=== PATIENT | male | born 1965 | race Two or more races ===

== ENCOUNTER 2018-04-10 22:48 | Emergency (ER) | payer OTHER ==
[2018-04-10 23:23] LABS: ANION GAP 9 (6-14); BLOOD UREA NITROGEN 11 mg/dL (8-26); CALCIUM 9.5 mg/dL (8.5-10.1); CARBON DIOXIDE 26 mmol/L (21-32); CHLORIDE 102 mmol/L (98-107); GFR 77.9; GLUCOSE 85 mg/dL (70-99); POTASSIUM 3.4 mmol/L (3.5-5.1); SODIUM 137 mmol/L (136-145)
[2018-04-10 23:37] LABS: BILIRUBIN,URINE NEGATIVE (NEG); CLARITY,URINE CLEAR; GLUCOSE,URINE NEGATIVE (NEG); NITRITE,URINE NEGATIVE (NEG); PROTEIN,URINE NEGATIVE (NEG-TRACE); UROBILINOGEN,URINE 0.2 mg/dL (0.2 mg/dL)
[2018-04-10] MEDS: hydrALAZINE 20 MG/ML VIAL. IVP (23:39)
[2018-04-10 23:42] LABS: COLOR,URINE STRAW
[2018-04-10 23:43] LABS: BACTERIA,URINE 0 /HPF (0-FEW); RBC,URINE RARE /HPF (0-2); SQUAMOUS EPITHELIAL CELL,UR OCC /LPF; WBC,URINE 0 /HPF (0-4)
[2018-04-11] MEDS ORDERED: hydrALAZINE 20 MG/ML VIAL. IVP (00:30)
== END 2018-04-11 01:05 | disposition home or self-care (01) ==
LOC: ER 04-11 01:05
DX: I10 Essential (primary) hypertension (principal); G89.29 Other chronic pain
CPT/HCPCS: 36415; 80048; 81001; 84484; 93005; 96374; 99285-25; J0360

== ENCOUNTER 2018-10-02 22:27 | Emergency (ER) | payer OTHER ==
[~2018-10-02] VITALS: Ht 165.1 cm; Wt 67.6 kg
[~2018-10-02 22:27] MED LIST: LISI-334 PO
[2018-10-02] MEDS ORDERED: PROCHLORPERAZINE 10 MG/2 ML VIAL. IV ONE (23:30)
[2018-10-02] MEDS ORDERED: diphenhydrAMINE 50 MG/ML VIAL IVP ONE (23:30)
[2018-10-02] MEDS ORDERED: IV NORMAL SALINE 1000ML BAG 1,000 ML IV ONE (23:30)
--- NOTE | 2018-10-02 23:31 | RAD ---
Examination: CT HEAD WO CONTRAST History: severe high blood pressure; headache Comparison/Correlation: None Findings: Axial images of the head were obtained without contrast. Ventricles are normal size. No intracranial hemorrhage, midline shift, or mass effect. There is linear low-attenuation involving the left insula extending into the left temporal lobe. Mild diffuse low-attenuation involving the left temporal lobe is present without mass effect. Globes and optic nerves are unremarkable. Absence of the medial wall of the right maxillary sinus is noted with mucosal thickening. Patchy opacification of ethmoid air cells noted. Mucosal thickening of the left maxillary sinus is minimal. Minimal fluid within the left maxillary sinus suggested. Globes and optic nerves are unremarkable. Impression: No intracranial hemorrhage. 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 Correlate for previous infarct. In addition however there is more extensive, milder low-attenuation throughout the left temporal lobe. Further evaluation MRI of the brain without and with contrast if able to assess for possibility of a mass lesion or other significant process is recommended on a nonemergent basis. Chronic paranasal sinusitis. Minimal acute left maxillary sinusitis. Electronically signed by: Henri Quintanilla MD (10/02/2018 11:26 PM) [facility]
--- NOTE | 2018-10-02 23:44 | PHYS DOC ---
Past Medical History Past Medical History: Hypertension, Other Additional Past Medical Histor: patient is very poor historian reports chronic leg pain Past Surgical History: No Surgical History Additional Past Surgical Histo: sinus surgery 1 month ago Additional Information: chewing tobacco Alcohol Use: None Drug Use: None Adult General Chief Complaint Chief Complaint: HYPERTENSION HPI HPI Patient is a 53 year old male who presents with generalized headache. Patient had onset of symptoms earlier today. Headache came on slowly and not suddenly. The patient does state he has a history of similar episodes when his blood pressure is high. He is normally on 3 medications for blood pressure daily but he cannot murmur with they're called. He took his last pill earlier this morning. This evening, he complains of a generalized frontal temporal headache. Pain is described to be throbbing in nature. No vision changes. No photophobia. No nausea or vomiting. He has not had chest pain or shortness of breath. No recent fever, chills, neck stiffness. No recent travel. Review of Systems Review of Systems Constitutional: Denies fever Eyes: Denies change in visual acuity, redness, or eye pain HENT: Denies nasal congestion or sore throat Respiratory: Denies cough or shortness of breath Cardiovascular: No additional information not addressed in HPI GI: Denies nausea or vomiting Integument: Denies rash Neurologic: Denies headache Endocrine: Denies polyuria All other systems were reviewed and found to be within normal limits, except as documented in this note. Current Medications Current Medications Current Medications Medications (Trade) Dose Ordered Sig/Alfonzo Start Time Stop Time Status Last Admin Dose Admin Diphenhydramine HCl (Benadryl) 12.5 mg 1X ONCE 10/02/18 23:30 10/02/18 23:31 DC 10/02/18 23:25 12.5 MG Labetalol HCl (Normodyne Iv Push) 20 mg 1X ONCE 10/03/18 00:30 10/03/18 00:31 DC Morphine Sulfate (Morphine Sulfate) 4 mg 1X ONCE 10/03/18 00:30 10/03/18 00:31 DC 10/02/18 23:56 4 MG Prochlorperazine Edisylate (Compazine) 10 mg 1X ONCE 10/02/18 23:30 10/02/18 23:31 DC 10/02/18 23:25 10 MG Sodium Chloride 1,000 ml @ 1,000 mls/hr 1X ONCE 10/02/18 23:30 10/03/18 00:29 DC 10/02/18 23:25 1,000 MLS/HR Allergies Allergies Allergies Coded Allergies Type Severity Reaction Last Updated Verified No Known Drug Allergies 08/09/15 No Physical Exam Physical Exam Constitutional: Well developed, well nourished, no acute distress, non-toxic appearance HENT: Normocephalic, atraumatic, bilateral external ears normal, oropharynx moist Eyes: PERRLA, EOMI, conjunctiva normal Neck: Normal range of motion, no tenderness, supple Cardiovascular:Heart rate regular rhythm, no murmur Lungs & Thorax: Bilateral breath sounds clear to auscultation Abdomen: Bowel sounds normal, soft, no tenderness Skin: Warm, dry, no erythema Back: No tenderness, no CVA tenderness Extremities: No tenderness, no cyanosis, no clubbing, ROM intact, no edema Neurologic: Alert and oriented X 3, normal motor function, normal cranial nerve exam bilaterally. Normal steady gait. Psychologic: Affect normal, judgement normal Current Patient Data Vital Signs Vital Signs Date Time Temp Pulse Resp B/P (MAP) Pulse Ox O2 Delivery O2 Flow Rate FiO2 10/03/18 00:00 86 18 94 10/02/18 23:56 Room Air 10/02/18 22:30 97.8 198/89 (125) 97.8 EKG EKG [] Radiology/Procedures Radiology/Procedures CT head: Impression: No intracranial hemorrhage. 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 Correlate for previous infarct. In addition however there is more extensive, milder low-attenuation throughout the left temporal lobe. Further evaluation MRI of the brain without and with contrast if able to assess for possibility of a mass lesion or other significant process is recommended on a nonemergent basis. Chronic paranasal sinusitis. Minimal acute left maxillary sinusitis. Course & Med Decision Making Course & Med Decision Making Pertinent Labs and Imaging studies reviewed. (See chart for details) Patient is evaluated immediately on arrival to his room. He has a normal neurologic exam. He does state that his symptoms this evening feel typical for when his blood pressure is elevated. No focal neuro complaints. Plan is to give usual headache medications along with medication for blood pressure if his blood pressure does not improve. Will check CT scan of the head. 23:45: Patient has received Compazine and Benadryl for his headache. He has no relief of pain symptoms at this time. His blood pressure continues to be 186 systolic. He is ordered to have additional medications for pain. 00:40: Patient currently feeling much improved. His headache symptoms are entirely resolved. His systolic blood pressure is 150. I did contact the patient 's primary pharmacy to find out that he takes Norvasc, lisinopril, metoprolol. Refills of these medications are prescribed. The patient had some areas of low attenuation on his CT scan but did not have any acute findings suspicious for bleed. These findings were discussed with the patient through his family member who was the primary boilermaker welder. They were explicitly advised to follow-up with her primary care doctor to seek follow-up MRI scan of the brain. This was also written into their discharge papers. They did verbalize understanding. He has a scheduled follow-up appointment with his primary care doctor and about 5 weeks. He was advised to call tomorrow for a sooner appointment or come back to the ER for any new or worsening symptoms. Dragon Disclaimer Dragon Disclaimer This electronic medical record was generated, in whole or in part, using a voice recognition dictation system. Departure Departure Disposition: 01 HOME, SELF-CARE Condition: GOOD Referrals: CHAITANYA MICHAUD MD (PCP) Scripts Amlodipine Besylate (NORVASC) 10 Mg Tablet 10 MG PO DAILY, #30 TAB 1 Refill Prov: ELIZA TURNER DO 10/03/18 Lisinopril (LISINOPRIL) 20 Mg Tablet 1 TAB PO DAILY, #30 TAB 1 Refill Prov: ELIZA TURNER DO 10/03/18 Metoprolol Tartrate (METOPROLOL TARTRATE) 50 Mg Tablet 1 TAB PO BID, #60 TAB 1 Refill Prov: ELIZA TURNER DO 10/03/18 ELIZA TURNER DO Oct 02, 2018 23:44
[2018-10-03 00:30] VITALS: BP 153/95
[2018-10-03] MEDS ORDERED: LABETALOL 20 MG/4 ML DISP.SYRIN. IVP ONE (00:30)
[2018-10-03] MEDS ORDERED: MORPHINE SULFATE 4 MG/ML VIAL. IV ONE (00:30)
[2018-10-03] MEDS ORDERED: AMLO10TA4 PO (00:33)
[2018-10-03] MEDS ORDERED: LISI-334 PO (00:33)
[2018-10-03] MEDS ORDERED: METO50TA6 PO (00:33)
== END 2018-10-03 00:45 | disposition home or self-care (01) ==
LOC: ER 22:27
DX: R51 Headache (principal); I10 Essential (primary) hypertension; F17.220 Nicotine dependence, chewing tobacco, uncomplicated
CPT/HCPCS: 70450; 96374; 96375; 99284; J0780; J1200; J2270; J7030

== ENCOUNTER 2019-06-21 01:48 | Emergency (ER) | payer OTHER ==
[~2019-06-21] VITALS: Ht 162.6 cm; Wt 68.0 kg
[~2019-06-21 01:48] MED LIST changes: +AMLO10TA4 PO; +METO50TA6 PO
--- NOTE | 2019-06-21 02:15 | PHYS DOC ---
Past Medical History Past Medical History: Hypertension, Other Additional Past Medical Histor: patient is very poor historian reports chronic leg pain Past Surgical History: No Surgical History Additional Past Surgical Histo: sinus surgery 1 month ago Alcohol Use: None Drug Use: None Adult General Chief Complaint Chief Complaint: HYPERTENSION HPI HPI Patient is a 53-year-old male who presents with complaint of left-sided neck pain and elevated blood pressure. Patient states that pain has been present since last night and states that he first noticed the pain when he woke up during the night. He denies any injuries. Patient states the pain is worsened when he tries to turn or side bend his neck. He rates pain at a 5 out of 10. Patient also states that blood pressure was more elevated than usual tonight. Patient does take his blood pressure medication as directed but states that he is not sure what medication is his blood pressure medication because he received it in bubble packs, mixed with his other medications.[] Review of Systems Review of Systems Constitutional: Denies fever or chills [] Respiratory: Denies cough or shortness of breath [] Cardiovascular: No additional information not addressed in HPI [] Musculoskeletal: Complains of neck pain [] Integument: Denies rash or skin lesions [] Neurologic: Denies headache, focal weakness or sensory changes [] All other systems were reviewed and found to be within normal limits, except as documented in this note. Current Medications Current Medications Current Medications Medications (Trade) Dose Ordered Sig/[facility] Start Time Stop Time Status Last Admin Dose Admin Acetaminophen/ Hydrocodone Bitart (Lortab 7.5/325) 1 tab 1X ONCE 06/21/19 02:30 06/21/19 02:31 DC 06/21/19 02:16 1 TAB Clonidine HCl (Catapres) 0.2 mg 1X ONCE 06/21/19 02:30 06/21/19 02:31 DC 06/21/19 02:16 0.2 MG Cyclobenzaprine HCl (Flexeril) 10 mg 1X ONCE 06/21/19 02:30 06/21/19 02:31 DC 06/21/19 02:16 10 MG Allergies Allergies Allergies Coded Allergies Type Severity Reaction Last Updated Verified No Known Drug Allergies 08/09/15 No Physical Exam Physical Exam Constitutional: Well developed, well nourished, no acute distress, non-toxic appearance. [] HENT: Normocephalic, atraumatic, bilateral external ears normal, oropharynx moist, no oral exudates, nose normal. [] Eyes: PERRLA, EOMI, conjunctiva normal, no discharge. [] Neck: Normal range of motion, with tenderness to palpation in the left sided suboccipital and cervical strap muscles with palpable spasm. [] Cardiovascular: Regular rate and rhythm[] Lungs & Thorax: Bilateral breath sounds clear to auscultation [] Abdomen: Bowel sounds normal, soft, no tenderness. [] Skin: Warm, dry, no erythema, no rash. [] Extremities: No tenderness, no cyanosis, no clubbing, ROM intact, no edema. [] Neurologic: Alert and oriented X 3, no focal deficits noted. [] Current Patient Data Vital Signs Vital Signs Date Time Temp Pulse Resp B/P (MAP) Pulse Ox O2 Delivery O2 Flow Rate FiO2 06/21/19 02:16 75 179/98 06/21/19 02:16 16 98 Room Air 06/21/19 01:55 98.2 98.2 EKG EKG [] Radiology/Procedures Radiology/Procedures [] Course & Med Decision Making Course & Med Decision Making Pertinent Labs and Imaging studies reviewed. (See chart for details) [] Dragon Disclaimer Dragon Disclaimer This electronic medical record was generated, in whole or in part, using a voice recognition dictation system. Departure Departure Impression: Primary Impression: Neck pain Additional Impression: Hypertension Disposition: 01 HOME, SELF-CARE Condition: STABLE Referrals: CHAITANYA MICHAUD MD (PCP) Patient Instructions: Hypertension, Musculoskeletal Pain Scripts Orphenadrine Citrate (ORPHENADRINE CITRATE) 100 Mg Tablet.er 1 TAB PO BID PRN for MUSCLE SPASMS, #14 TAB Prov: LIT ERAZO Jr. DO 06/21/19 Tramadol Hcl (TRAMADOL HCL) 50 Mg Tablet 50 MG PO Q6HRS PRN for PAIN, #12 TAB Prov: LIT ERAZO Jr. DO 06/21/19 Problem Qualifiers Additional Impression: Hypertension Hypertension type: essential hypertension Qualified Codes: I10 - Essential (primary) hypertension LIT ERAZO Jr. DO Jun 21, 2019 02:15
[2019-06-21 02:20] VITALS: BP 166/97
[2019-06-21] MEDS ORDERED: cloNIDine HCL 0.1 MG TABLET PO ONE (02:30)
[2019-06-21] MEDS ORDERED: HYDROcodone/APAP 7.5/325MG 1 TAB TABLET PO ONE (02:30)
[2019-06-21] MEDS ORDERED: CYCLOBENZAPRINE 10 MG TABLET. PO ONE (02:30)
[2019-06-21] MEDS ORDERED: TRAM50TA PO (02:45)
[2019-06-21] MEDS ORDERED: ORPH100T PO (02:45)
== END 2019-06-21 03:00 | disposition home or self-care (01) ==
LOC: ER 01:48
DX: M54.2 Cervicalgia (principal); I10 Essential (primary) hypertension; G89.29 Other chronic pain
CPT/HCPCS: 99284

== ENCOUNTER 2019-07-17 20:20 | Emergency (ER) | payer OTHER ==
[~2019-07-17] VITALS: Ht 160 cm; Wt 68.0 kg
[~2019-07-17 20:20] MED LIST changes: +ORPH100T PO; +TRAM50TA PO
[2019-07-17] MEDS ORDERED: cloNIDine HCL 0.1 MG TABLET PO ONE (21:45)
--- NOTE | 2019-07-17 21:58 | PHYS DOC ---
Past Medical History Past Medical History: Depression, Hypertension, Other Additional Past Medical Histor: patient is very poor historian reports chronic leg pain (BRENNAN GILES APRN) Past Surgical History: No Surgical History Additional Past Surgical Histo: sinus surgery 1 month ago (BRENNAN GILES APRN) Alcohol Use: None Drug Use: None (BRENNAN GILES APRN) Attending Signature I have participated in the care of this patient and I have reviewed and agree with all pertinent clinical information above including history, exam, and recommendations. (SANDRA ARNETT MD) Adult General Chief Complaint Chief Complaint: HYPERTENSION HPI HPI Patient is a 53 year old male with history of hypertension and depression who presents to the ED today requesting high blood pressure medications. Patient states he ran out of his own medicine a couple days ago. He has prescriptions at the local pharmacy. He unfortunately does not know the name of the medicines he is on. Denies any other symptoms. Patient is [place] speaking and the son is interpreting (BRENNAN GILES APRN) Review of Systems Review of Systems Constitutional: Denies fever or chills [] Eyes: Denies change in visual acuity, redness, or eye pain [] HENT: Denies nasal congestion or sore throat [] Respiratory: Denies cough or shortness of breath [] Cardiovascular: Reports high blood pressure GI: Denies abdominal pain, nausea, vomiting, bloody stools or diarrhea [] : Denies dysuria or hematuria [] Musculoskeletal: Denies back pain or joint pain [] Integument: Denies rash or skin lesions [] Neurologic: Denies headache, focal weakness or sensory changes [] All other systems were reviewed and found to be within normal limits, except as documented in this note. (BRENNAN GILES APRN) Current Medications Current Medications Current Medications Medications (Trade) Dose Ordered Sig/Alfonzo Start Time Stop Time Status Last Admin Dose Admin Clonidine HCl (Catapres) 0.2 mg 1X ONCE 07/17/19 21:45 07/17/19 21:46 DC 07/17/19 21:57 0.2 MG (SANDRA ARNETT MD) Allergies Allergies Allergies Coded Allergies Type Severity Reaction Last Updated Verified No Known Drug Allergies 08/09/15 No (SANDRA ARNETT MD) Physical Exam Physical Exam Constitutional: Well developed, well nourished, no acute distress, non-toxic appearance. [] HENT: Normocephalic, atraumatic, bilateral external ears normal, oropharynx moist, no oral exudates, nose normal. [] Eyes: PERRLA, EOMI, conjunctiva normal, no discharge. [] Neck: Normal range of motion, no tenderness, supple, no stridor. [] Cardiovascular:Heart rate regular rhythm, no murmur [] Lungs & Thorax: Bilateral breath sounds clear to auscultation [] Abdomen: Bowel sounds normal, soft, no tenderness, no masses, no pulsatile masses. [] Skin: Warm, dry, no erythema, no rash. [] Back: No tenderness, no CVA tenderness. [] Extremities: No tenderness, no cyanosis, no clubbing, ROM intact, no edema. [] Neurologic: Alert and oriented X 3, normal motor function, normal sensory function, no focal deficits noted. [] Psychologic: Affect normal, judgement normal, mood normal. [] (BRENNAN GILES APRN) Current Patient Data Vital Signs Vital Signs Date Time Temp Pulse Resp B/P (MAP) Pulse Ox O2 Delivery O2 Flow Rate FiO2 07/17/19 21:57 77 189/110 07/17/19 20:49 97.6 18 98 Room Air 97.6 (SANDRA ARNETT MD) EKG EKG [] (BRENNAN GILES APRN) Radiology/Procedures Radiology/Procedures [] (BRENNAN GILES APRN) Course & Med Decision Making Course & Med Decision Making Pertinent Labs and Imaging studies reviewed. (See chart for details) This is a 53-year-old male patient who presents to the ED today requesting his blood pressure medications. He ran out of his medicines a couple days ago. He does not know the name of the medicines he takes, he states he has a prescription at the local pharmacy which he can pick tomorrow but he would like something in the ED right now. He has no other complaints. Blood pressure 205/102 with a heart rate of 79. Was given clonidine and discharged. Encouraged to go to the pharmacy and make sure he gets his medication refilled tomorrow morning (BRENNAN GILES APRN) Dragon Disclaimer Dragon Disclaimer This electronic medical record was generated, in whole or in part, using a voice recognition dictation system. (BRENNAN GILES APRN) Departure Departure Impression: Primary Impression: HTN (hypertension) Disposition: HOME, SELF-CARE Condition: STABLE Referrals: CHAITANYA MICHAUD MD (PCP) follow up in the course of this week Patient Instructions: Hypertension Additional Instructions: You were evaluated in the emergency room for high blood pressure. Please call your doctor tomorrow morning and set up a follow-up appointment. Please go to a local pharmacy and shrimp picker your blood pressure medicines Problem Qualifiers Primary Impression: HTN (hypertension) Hypertension type: unspecified Qualified Codes: I10 - Essential (primary) hypertension BRENNAN GILES APRN Jul 17, 2019 21:58 SANDRA ARNETT MD Jul 18, 2019 00:33
[2019-07-17 22:23] VITALS: BP 183/95
== END 2019-07-17 22:23 | disposition home or self-care (01) ==
LOC: ER 20:20
DX: I10 Essential (primary) hypertension (principal); F32.9 Major depressive disorder, single episode, unspecified; G89.29 Other chronic pain
CPT/HCPCS: 99281; 99282

== ENCOUNTER 2019-10-07 01:35 | Emergency (ER) | payer OTHER ==
[~2019-10-07] VITALS: Ht 165.1 cm; Wt 68.0 kg
[2019-10-07] MEDS ORDERED: AZIT250T PO (03:30)
[2019-10-07] MEDS ORDERED: BENZ100C PO (03:30)
--- NOTE | 2019-10-07 03:30 | RAD ---
EXAM: PA and Lateral Views of the Chest DATE: 10/07/2019 2:17 AM INDICATION: Cough and sore throat since yesterday COMPARISON: No Prior FINDINGS: The heart is not enlarged. Mediastinal and hilar contours are normal. No focal parenchymal airspace opacity. No pleural effusion or pneumothorax. IMPRESSION: No evidence for acute cardiopulmonary process Electronically signed by: Harris Ackerman MD (10/07/2019 3:28 AM) [facility]
--- NOTE | 2019-10-07 03:31 | PHYS DOC ---
Past Medical History Past Medical History: Hypertension Additional Past Medical Histor: patient is very poor historian reports chronic leg pain Past Surgical History: No Surgical History Additional Past Surgical Histo: "tumor removed from nose" Alcohol Use: None Drug Use: None Adult General Chief Complaint Chief Complaint: COUGH [facility] HPI Patient is a 54 year old male who presents with complaint of productive cough, chest soreness and sore throat for the last few days. Patient reports that cough is been productive of yellow-green sputum. Patient is had no fever. Patient denies any nausea or vomiting. He also denies any shortness of breath.[] Review of Systems Review of Systems Constitutional: Denies fever or chills [] Respiratory: Positive cough without shortness of breath [] Cardiovascular: No additional information not addressed in HPI [] Integument: Denies rash or skin lesions [] Neurologic: Denies headache, focal weakness or sensory changes [] Allergies Allergies Allergies Coded Allergies Type Severity Reaction Last Updated Verified No Known Drug Allergies 08/09/15 No Physical Exam Physical Exam Constitutional: Well developed, well nourished, no acute distress, non-toxic appearance. [] Cardiovascular: Regular rate and rhythm[] Lungs & Thorax: Fine rhonchi are noted bilaterally to auscultation [] Skin: Warm, dry, no erythema, no rash. [] Extremities: No tenderness, no cyanosis, no clubbing, ROM intact, no edema. [] Current Patient Data Vital Signs Vital Signs Date Time Temp Pulse Resp B/P (MAP) Pulse Ox O2 Delivery O2 Flow Rate FiO2 10/07/19 02:12 98.3 97 16 148/81 (103) 99 Room Air 98.3 EKG EKG [] Radiology/Procedures Radiology/Procedures [] Impressions: Two-view chest x-ray demonstrates no acute process. Course & Med Decision Making Course & Med Decision Making Pertinent Labs and Imaging studies reviewed. (See chart for details) [] Dragon Disclaimer Dragon Disclaimer This electronic medical record was generated, in whole or in part, using a voice recognition dictation system. Departure Departure Impression: Primary Impression: Acute bronchitis Disposition: 01 HOME, SELF-CARE Condition: STABLE Referrals: CHAITANYA MICHAUD MD (PCP) Patient Instructions: Acute Bronchitis Scripts Benzonatate (TESSALON PERLE) 100 Mg Capsule 1 CAP PO TID PRN for COUGH, #21 CAP Prov: LIT ERAZO Jr. DO 10/07/19 Azithromycin (ZITHROMAX) 250 Mg Tablet 1 PKG PO UD, #6 TAB Prov: LIT ERAZO Jr. DO 10/07/19 Problem Qualifiers Primary Impression: Acute bronchitis Bronchitis organism: unspecified organism Qualified Codes: J20.9 - Acute bronchitis, unspecified LIT ERAZO Jr. DO Oct 07, 2019 03:31
[2019-10-07 03:45] VITALS: BP 148/88
[2019-10-07] MEDS ORDERED: AZITHROMYCIN 250 MG TABLET. PO ONE (03:45)
== END 2019-10-07 03:55 | disposition home or self-care (01) ==
LOC: ER 01:35
DX: J20.9 Acute bronchitis, unspecified (principal); R07.89 Other chest pain; I10 Essential (primary) hypertension; G89.29 Other chronic pain; Z98.890 Other specified postprocedural states
CPT/HCPCS: 71046; 99284; Q0144